=== PATIENT | female | born 1980 | race African-American/Black ===

== ENCOUNTER 2020-05-23 12:12 | Inpatient (IN) | payer OTHER ==
[2020-05-23 13:26] VITALS: BMI 36.0
[2020-05-23] MEDS ORDERED: LIGASURE IMPACT TP ONE (14:22)
[2020-05-23] MEDS ORDERED: morphine SULFATE/PF 0.5 MG/ML (2cc Syringe - QUVA) ONE (14:31)
--- NOTE | 2020-05-23 14:45 | HP ---
Past Medical History - Primary Care Physician PCP:: Buddy Lutz - Admission Chief Complaint: 40yo P2 with at EGA 39w1d admitted for repeat C/S and pt also requested bilateral salpingectomy for sterilization. 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: Alzheimer's, CVA, Dementia, Migraine, Multiple Sclerosis, Peripheral Neuropathy, Parkinson's, Seizure, Syncope, TIA, Vertigo, Other Cardiovascular: No: AFIB, Aneurysm, Aortic Insufficiency, Aortic Stenosis, CAD, CHF, Deep Vein Thrombosis, HTN, Hyperlipdemia, [place], Mitral Insufficiency, Mitral Stenosis, Murmur, Pulmonary Hypertension, Other Pulmonary: No: Asthma, Bronchitis, Cancer, COPD, O2 Dependent, Pneumonia, Previously Intubated, Pulmonary Embolus, Pulmonary Fibrosis, Sleep Apnea, Other Gastrointestinal: No: Ascites, Cancer, Constipation, Crohn's Disease, Diverticulitis, Diverticulosis, Esophageal Varices, Gastritis, GERD, GI Bleed, Hemorrhoids, Hiatal Hernia, Inflamatory Bowel Disease, Irritable Bowel Disease, Pancreatitis, Peptic Ulcer Disease, Ulcerative Colitis, Other Hepatobiliary: No: Cirrhosis, Cholelithiasis, Cholecystitis, Choledo cholithiasis, Hepatitis A, Hepatitis B, Hepatitis C, Other Renal/: No: Renal Failure, Renal Inusuff, BPH, Cancer, Hematuria, Hemodialysis, Neurogenic Bladder, Renal Calculi, UTI, Other ...: 3 ...Para: 2 ...Term: 2 ...Living Children: 2 ...LMP: 08/31/19 ... Weeks Gestation by Dates: 39.1 ...EDC by Dates: 06/06/20 ...EDC by Sono: 05/29/20 Heme/Onc: No: Anemia, B12 Deficiency, Bleeding Disorder, Cancer, Current Chemotherapy, Current Radiation Therapy, Hemochromatosis, Hypercoaguable State, Myeloproliferative Synd, Sickle Cell Disease, Sickle Cell Trait, Thrombocytopenia, Other Infectious Disease: Yes: MRSA Psych: No: Addictions, Anxiety, Bipolar, Depression, Panic, Psychosis, Schizophr enia, Other Musculoskeletal: No: Bursitis, Chronic low back pain, Hemiparesis, Hemiplegia, Osteoarthritis, Paraplegia, Other Rheumatology: No: Fibromyalgia, Gout, Lupus, Rheumatoid Arthritis, Sarcoidosis, Vasculitis, Other ENT: No: Allergic Rhinitis, Sinusitis, Other Endocrine: No: Camp's Disease, Inderjit's Disease, Diabetes Insipidus, Diabetes Mellitus, Hyperparathyroidism, Hyperthyroidism, Hypothyroidism, Osteopenia, SIADH, Other Dermatology: No: Basal Cell, Cellulitis, Eczema, Melanoma, Psoriasis, Squamous Cell, Other - Past Surgical History Past Surgical History: Yes: (x 2) Hx Myomectomy: No Hx Transabdominal Cerclage: No - Smoking History Smoking history: Never smoked - Alcohol/Substance Use Hx Alcohol Use: No History of Substance Use: reports: None - Social History Usual Living Arrangement: Yes: With Parent, With Child Do you think of yourself as: Straight/Heterosexual ADL: Independent History of Recent Travel: No Home Medications - Allergies Allergies/Adverse Reactions: Allergies Allergy/AdvReac Type Severity Reaction Status Date / Time Sulfa (Sulfonamide Allergy Severe Difficulty Verified 05/23/20 13:35 Antibiotics) Breathing - Home Medications Home Medications: Ambulatory Orders Caplet 1 tablet PO DAILY 05/22/20 Family Medical History Family Hx Cardiac Disorders: Brother Family Hx Diabetes: Mother Family Hx Respiratory Disorders: Father Review of Systems - Review of Systems Constitutional: reports: No Symptoms Eyes: reports: No Symptoms HENT: reports: No Symptoms Neck: reports: No Symptoms Cardiovascular: reports: No Symptoms Respiratory: reports: No Symptoms Gastrointestinal: reports: No Symptoms Genitourinary: reports: No Symptoms Breasts: reports: No Symptoms Reported Musculoskeletal: reports: No Symptoms Integumentary: reports: No Symptoms Neurological: reports: No Symptoms Endocrine: reports: No Symptoms Hematology/Lymphatic: reports: No Symptoms Psychiatric: reports: No Symptoms Pain Intensity: 0 Physical Exam - Maternity Vital Signs: Vital Signs Temperature 98.2 F 05/23/20 13:17 Pulse Rate 82 05/23/20 13:17 Respiratory Rate 20 05/23/20 13:17 Blood Pressure 127/72 05/23/20 13:17 O2 Sat by Pulse Oximetry (%) Constitutional: Yes: Well Nourished, No Distress, Calm Eyes: Yes: WNL, Conjunctiva Clear, EOM Intact HENT: Yes: WNL, Atraumatic, Normocephalic Neck: Yes: WNL, Supple, Trachea Midline Cardiovascular: Yes: WNL, Regular Rate and Rhythm Lungs: Clear to auscultation, Normal air movement Breast(s): Yes: WNL - Abdominal Exam/OB Fundal Height: 39 Number of Fetuses: Single Presentation: Vertex Contractions: Yes Regularity: Irregular Intensity: Unaware Monitor Mode: External Heart Rate (range): 120 Heart Rate Location: Midline Category: I Accelerations: Uniform Decelerations: None - Vaginal Exam/OB Vaginal Bleeding: No Speculum Exam: No Presentation: Vertex/Position - Physical Exam Musculoskeletal: Yes: WNL Extremities: Yes: WNL Edema: No Integumentary: Yes: WNL Deep Tendon Reflex Grade: Normal +2 ...Motor Strength: WNL Psychiatric: Yes: WNL, Alert, Oriented Hemorrhage Risk Assessment - Risk Factors Medium Risk Factors: Yes: Prior , uterine surgery,or multiple laparotomies High Risk Factors: Yes: None Risk Score: 1 Risk Level: Medium Risk Imaging - Results Ultrasound: Report Reviewed Assessment/Plan 40yo P2 with at EGA 39w1d admitted for repeat C/S and pt also requested bilateral salpingectomy for sterilization. We discussed the risks and benefits of C/S and salingectomy at length, including but not limited to scarring, pain, bleeding, infection, injury to underlying organs and structures, need for additional surgery to repair/treat any problems or complications, complications/injuries, etc. The pt verbalized her understanding and requested to proceed with surgery. The pt is aware that all surgeries have risks and no guarantees can be provided.
[2020-05-23] MEDS ORDERED: MIDAZOLAM HCL 2 MG/2 ML SINGLE DOSE VIAL ONE (15:48)
[2020-05-23] MEDS ORDERED: oxyCODONE HCL 5 MG TABLET PO PRN (16:39)
[2020-05-23] MEDS ORDERED: SENNOSIDES/DOCUSATE COMBO (SENNA PLUS) TABLET (UD) PO PRN (16:39)
[2020-05-23] MEDS ORDERED: BENZOCAINE 28 GM HEMORRHOIDAL OINTMENT TP PRN (16:39)
[2020-05-23] MEDS ORDERED: IBUPROFEN 800 MG/8 ML IJ IVPB PRN (16:39)
[2020-05-23] MEDS ORDERED: BENZOCAINE 20% 57 GM BOTTLE TP PRN (16:39)
[2020-05-23] MEDS ORDERED: METHYLERGONOVINE MALEATE 0.2 MG/1 ML AMP IM PRN (16:39)
[2020-05-23] MEDS ORDERED: WITCH HAZEL 50% (TUCKS) 40 PAD/JAR PAD TP PRN (16:39)
[2020-05-23] MEDS ORDERED: OXYTOCIN 20 UNITS in 0.9% NS 20 UNIT/1,000 ML INFUS.BAG IV SCH (16:45)
[2020-05-23] MEDS ORDERED: ELECTROLYTE-148 SOLN 1,000 ML IV SCH (16:45)
--- NOTE | 2020-05-23 16:45 | OP ---
Operative Note - Note: Operative Date: 05/23/20 Pre-Operative Diagnosis: at EGA 39w1d. Prior C/S x 2. AMA. Sterilization Operation: 1. Repeat LT C/S. 2. Bilateral salpingectomy Findings: Live baby girl in vtx presentation. No meconium in amniotic fluid. Normal uterus/ovaries/tubes Post-Operative Diagnosis: Same as Pre-op Surgeon: Buddy Lutz Exercise Physiologist Certified: Enma Sands Anesthesiologist/SOCIAL SCIENCES PROFESSOR: Luke Ricci Anesthesia: Spinal Specimens Removed: Placenta, bilateral Fallopian tubes Estimated Blood Loss (mls): 700 Drains & Tubes with Location: Rao cath Drains, Volume Out (mls): 600 Blood Volume Replaced (mls): 0 Fluid Volume Replaced (mls): 1,400 Operative Report Dictated: Yes
[2020-05-23] MEDS ORDERED: ONDANSETRON 4 MG/2 ML VIAL IVPUSH PRN (16:52)
[2020-05-23] MEDS ORDERED: morphine SULFATE/PF 0.5 MG/ML (2cc Syringe - QUVA) EP ONE (16:52)
--- NOTE | 2020-05-23 16:56 | PN ---
Delivery - Delivery Section: Repeat, Low Flap Transverse Type of Anesthesia: Spinal EBL (cc): 700 Delivery, Single - Stages of Labor Date of Delivery: 05/23/20 Time of Delivery: 15:19 Time Placenta Delivered: 15:20 Placenta: Yes: Expressed, Manual Removal - Condition of Pediatrics Teacher/Oracle Programmer Analyst Present: Yes Name: Ratna Lucas Gender: Female Position: Right, OT Total Hours ROM (Hrs/Mins): 1M - 1 Minute Total Score: 9 5 Minutes Total Score: 9 - Feeding Plan Initial Plan: Elected not to breastfeed exclusively throughout hospitalization Benefits of Exclusively reinforced: Yes
[2020-05-23 17:18] LABS: CORD PCO2 56.6 mmHg (30-78); CORD pH 7.246 (7.14-7.44)
[2020-05-23 17:21] LABS: CORD BASE EXCESS -4.6 mmol/L (0-2); CORD HCO3 22.2 mmHg (20-29); CORD PCO2 47.3 mmHg (30-78); CORD pH 7.29 (7.14-7.44)
[2020-05-23] MEDS ORDERED: OXYTOCIN 20 UNITS in 0.9% NS 20 UNIT/1,000 ML INFUS.BAG IV ONE (17:44)
[2020-05-24 08:06] LABS: BASO % 0.6 % (0-2.0); EOS % 1.7 % (0-4.5); HEMATOCRIT 37.9 % (32.4-45.2); HEMOGLOBIN 12.1 GM/dL (10.7-15.3); LYMPH % 12.3 % (8-40); MCH 27.7 pg (25.7-33.7); MCHC 31.8 g/dl (32.0-36.0); MEAN CELL VOLUME 87.3 fl (80-96); MONO % 8.8 % (3.8-10.2); NEUT % 76.6 % (42.8-82.8); PLATELET COUNT 249 K/MM3 (134-434); RBC 4.34 M/mm3 (3.60-5.2); RDW 13.8 % (11.6-15.6)
--- NOTE | 2020-05-24 08:21 | PN ---
Post Progress Note - Subjective Subjective: No acute compalints Adelina clears No nausea /vomiting Rao clear fluid No fevers / chills No chest pain/ shortness of breath Post Day: 1 Type of Delivery: Repeat C/S Vital Signs: Vital Signs Temperature 98.4 F 05/24/20 08:00 Pulse Rate 102 H 05/24/20 08:00 Respiratory Rate 18 05/24/20 08:00 Blood Pressure 121/82 05/24/20 08:00 O2 Sat by Pulse Oximetry (%) 97 05/24/20 04:00 Breast Exam: Yes: Soft Uterus: Yes: Fundus Firm, Fundus below umbilicus Incision: Yes: Dressing dry and intact Abdomen/GI: Yes: Abdomen soft, Abdominal Distention (mild soft), Passing flatus, Tolerating PO. No: Tender Lochia: Yes: Rubra Lochia, amount: Moderate Extremities: Yes: Calves non-tender, Edema (trace) Activity: Ambulating - Labs Labs: CBC WBC 15.0 K/mm3 (4.0-10.0) H 05/24/20 07:34 RBC 4.34 M/mm3 (3.60-5.2) 05/24/20 07:34 Hgb 12.1 GM/dL (10.7-15.3) 05/24/20 07:34 Hct 37.9 % (32.4-45.2) 05/24/20 07:34 MCV 87.3 fl (80-96) 05/24/20 07:34 MCH 27.7 pg (25.7-33.7) 05/24/20 07:34 MCHC 31.8 g/dl (32.0-36.0) L 05/24/20 07:34 RDW 13.8 % (11.6-15.6) 05/24/20 07:34 Plt Count 249 K/MM3 (134-434) 05/24/20 07:34 MPV 9.0 fl (7.5-11.1) 05/24/20 07:34 Absolute Neuts (auto) 11.5 K/mm3 (1.5-8.0) H 05/24/20 07:34 Neutrophils % 76.6 % (42.8-82.8) 05/24/20 07:34 Lymphocytes % 12.3 % (8-40) D 10/22/20 07:34 Monocytes % 8.8 % (3.8-10.2) 05/24/20 07:34 Eosinophils % 1.7 % (0-4.5) 05/24/20 07:34 Basophils % 0.6 % (0-2.0) 05/24/20 07:34 Nucleated RBC % 0 % (0-0) 05/24/20 07:34 Assessment/Plan 40 yo POD # 1 s/p repeat CD + bilateral salpingectomy, afebrile, vital signs stable, doing well 1. continue routine postop care 2. AM CBC without signs of anemia 3. rh positive, no rhogam indicated 4. will advance diet as tolerated 5. will encourage ambulation 6. anticipate DC home POD # 3
[2020-05-24] MEDS ORDERED: PRENATAL PO SCH (10:00)
[2020-05-24] MEDS: PRENATAL VITAMINS W/ FOLIC ACID TABLET (FP) PO SCH (11:21)
[2020-05-24] MEDS: ENOXAPARIN NA (PORCINE) 40 MG/0.4 ML DISP.SYRIN SQ SCH (11:23)
--- NOTE | 2020-05-24 12:32 | PN ---
Progress Note (short form) - Note Progress Note: Anesthesia POD#1 S/P under Spinal A with DM VSS, no N/V, pain is bearable, legs fully recovered, Kanchan Martinez MD.
[2020-05-24] MEDS ORDERED: BISACODYL 10 MG SUPP.RECT RC PRN (16:39)
[2020-05-24] MEDS: IBUPROFEN 600 MG TABLET (FP) PO PRN (18:21)
[2020-05-24] MEDS: ACETAMINOPHEN 325 MG TABLET (FP) PO PRN (18:22)
--- NOTE | 2020-05-25 07:49 | PN ---
Progress Note (short form) - Note Progress Note: pod 2 s/p c/s , passing gas. ambulating MRSA positive ab asymptomatic CBC, BMP 05/24/20 07:34 Last Vital Signs Temp Pulse Resp BP Pulse Ox 98.2 F 100 H 20 129/76 98 05/24/20 21:00 05/24/20 21:00 05/24/20 21:00 05/24/20 21:00 05/24/20 17:00 abdomen soft, no distension, no cva incision dry, clean no calf tenderness plan ambulate ID consult revaluate cbc in am
[2020-05-25] MEDS: SIMETHICONE 80 MG TAB.CHEW (FP) PO PRN (09:21)
[2020-05-25] MEDS: IBUPROFEN 600 MG TABLET (FP) PO PRN (09:21)
[2020-05-25] MEDS: ACETAMINOPHEN 325 MG TABLET (FP) PO PRN (09:22)
[2020-05-25] MEDS: ENOXAPARIN NA (PORCINE) 40 MG/0.4 ML DISP.SYRIN SQ SCH (09:22)
[2020-05-25] MEDS: PRENATAL VITAMINS W/ FOLIC ACID TABLET (FP) PO SCH (09:23)
--- NOTE | 2020-05-25 11:34 | CON.ID ---
Consult Consult Specialty:: infectious diseases Referred by:: Reason for Consultation:: wound infection with mrsa - History of Present Illness Chief Complaint: wound infection History of Present Illness: 40yo P2 with at EGA 39w1d admitted for repeat C/S and pt had a healthy baby post op patient was found to have drainage from the wound according to her umbilicus and was cultured and is growing mrsa also her nostrils are growing mrsa patient mentions that she had a kid last year also and that time also she had mrsa infection of the skin and was treated with clinda patient denies any fever or any other issues - History Source History Provided By: Patient Limitations to Obtaining History: No Limitations - Past Medical History THERAPIST RADIATION: No: Alzheimer's, CVA, Dementia, Migraine, Multiple Sclerosis, Peripheral Neuropathy, Parkinson's, Seizure, Syncope, TIA, Vertigo, Other Cardio/Vascular: No: AFIB, Aneurysm, Aortic Insufficiency, Aortic Stenosis, CAD, CHF, Deep Vein Thrombosis, HTN, Hyperlipdemia, [place], Mitral Insufficiency, Mitral Stenosis, Murmur, Pulmonary Hypertension, Other Pulmonary: No: Asthma, Bronchitis, Cancer, COPD, O2 Dependent, Pneumonia, Previously Intubated, Pulmonary Embolus, Pulmonary Fibrosis, Sleep Apnea, Other Gastrointestinal: No: Ascites, Cancer, Constipation, Crohn's Disease, Diverticulitis, Diverticulosis, Esophageal Varices, Gastritis, GERD, GI Bleed, Hemorrhoids, Hiatal Hernia, Inflamatory Bowel Disease, Irritable Bowel Disease, Pancreatitis, Peptic Ulcer Disease, Ulcerative Colitis, Other Hepatobiliary: No: Cirrhosis, Cholelithiasis, Cholecystitis, Choledocholithiasi s, Hepatitis A, Hepatitis B, Hepatitis C, Other Renal/: No: Renal Failure, Renal Inusuff, BPH, Cancer, Hematuria, Hemodialysis, Neurogenic Bladder, Renal Calculi, UTI, Other Infectious Disease: Yes: MRSA Psych: No: Addictions, Anxiety, Bipolar, Depression, Panic, Psychosis, Schizophrenia, Other Musculoskeletal: No: Bursitis, Chronic low back pain, Hemiparesis, Hemiplegia, Osteoarthritis, Paraplegia, Other Rheumatology: No: Fibromyalgia, Gout, Lupus, Rheumatoid Arthritis, Sarcoidosis, Vasculitis, Other ENT: No: Allergic Rhinitis, Sinusitis, Other Endocrine: No: Anderson's Disease, Republic's Disease, Diabetes Insipidus, Diabetes Mellitus, Hyperparathyroidism, Hyperthyroidism, Hypothyroidism, Osteopenia, SIADH, Other Dermatology: No: Basal Cell, Cellulitis, Eczema, Melanoma, Psoriasis, Squamous Cell, Other - Past Surgical History Past Surgical History: Yes: (x 2) - Alcohol/Substance Use Hx Alcohol Use: No History of Substance Use: reports: None - Smoking History Smoking history: Never smoked - Social History ADL: Independent History of Recent Travel: No Home Medications - Allergies Allergies/Adverse Reactions: Allergies Allergy/AdvReac Type Severity Reaction Status Date / Time Sulfa (Sulfonamide Allergy Severe Difficulty Verified 05/23/20 13:35 Antibiotics) Breathing - Home Medications Home Medications: Ambulatory Orders Caplet 1 tablet PO DAILY 05/22/20 Family Medical History Family Hx Cardiac Disorders: Brother Family Hx Diabetes: Mother Family Hx Respiratory Disorders: Father Review of Systems - Review of Systems Constitutional: reports: No Symptoms Eyes: reports: No Symptoms HENT: reports: No Symptoms Neck: reports: No Symptoms Cardiovascular: reports: No Symptoms Respiratory: reports: No Symptoms Gastrointestinal: reports: No Symptoms Genitourinary: reports: No Symptoms Breasts: reports: No Symptoms Reported Musculoskeletal: reports: No Symptoms Integumentary: reports: No Symptoms Neurological: reports: No Symptoms Endocrine: reports: No Symptoms Hematology/Lymphatic: reports: No Symptoms Psychiatric: reports: No Symptoms Physical Exam Vital Signs: Vital Signs Temperature 98.4 F 05/25/20 09:23 Pulse Rate 98 H 05/25/20 09:23 Respiratory Rate 20 05/25/20 09:23 Blood Pressure 131/85 05/25/20 09:23 O2 Sat by Pulse Oximetry (%) 100 05/25/20 09:23 Constitutional: Yes: No Distress, Calm Cardiovascular: Yes: Regular Rate and Rhythm Respiratory: Yes: Regular, CTA Bilaterally Gastrointestinal: Yes: Normal Bowel Sounds, Soft Musculoskeletal: Yes: WNL Extremities: Yes: WNL Wound/Incision: Yes: Clean/Dry, Open to air, Other (no drain noted) Neurological: Yes: Alert, Oriented Psychiatric: Yes: Alert, Oriented Labs: CBC, BMP 05/24/20 07:34 Assessment/Plan this relatively healthy patient who has skin infection with mrsa and i think she is a carrier on the skin i am going to start her on clinda also on discharge patient should buy the clorhexidine soap and take shower for 2 weeks also to wear a protective gown when she is with her baby for at least 2 weeks will wait to see sensitivities
[2020-05-25] MEDS: CLINDAMYCIN HCL 150 MG CAPSULE (FP) PO SCH ×2 (13:38→17:49)
[2020-05-26] MEDS: IBUPROFEN 600 MG TABLET (FP) PO PRN ×3 (00:29→13:53)
[2020-05-26] MEDS: ACETAMINOPHEN 325 MG TABLET (FP) PO PRN ×3 (00:29→13:54)
[2020-05-26] MEDS: CLINDAMYCIN HCL 150 MG CAPSULE (FP) PO SCH ×4 (00:30→18:23)
[2020-05-26] MEDS: SIMETHICONE 80 MG TAB.CHEW (FP) PO PRN ×3 (00:30→13:55)
[2020-05-26 07:53] LABS: BASO % 0.6 % (0-2.0); EOS % 5.1 % (0-4.5); HEMATOCRIT 32.9 % (32.4-45.2); HEMOGLOBIN 10.7 GM/dL (10.7-15.3); LYMPH % 28.2 % (8-40); MCH 28.5 pg (25.7-33.7); MCHC 32.6 g/dl (32.0-36.0); MEAN CELL VOLUME 87.3 fl (80-96); MEAN PLT VOLUME 8.8 fl (7.5-11.1); MONO % 10.4 % (3.8-10.2); NEUT % 55.7 % (42.8-82.8); PLATELET COUNT 286 K/MM3 (134-434); RBC 3.76 M/mm3 (3.60-5.2); RDW 13.7 % (11.6-15.6); WHITE BLOOD COUNT 10.4 K/mm3 (4.0-10.0)
--- NOTE | 2020-05-26 08:33 | PN ---
Post Progress Note - Subjective Subjective: Patient without acute complaints. Reports tolerating oral intake without nausea or vomiting. Ambulating without dizziness. Denies fevers or chills. Pain well controlled with oral pain medication. without difficulty. Passing flatus. Post Day: 3 Type of Delivery: Repeat C/S Vital Signs: Vital Signs Temperature 98.7 F 05/25/20 22:00 Pulse Rate 93 H 05/25/20 22:00 Respiratory Rate 18 05/25/20 22:00 Blood Pressure 139/88 05/25/20 22:00 O2 Sat by Pulse Oximetry (%) 100 05/25/20 09:23 Breast Exam: Yes: Soft Uterus: Yes: Fundus Firm Incision: Yes: Sutures intact Abdomen/GI: Yes: Abdomen soft Lochia: Yes: Rubra Lochia, amount: Small Extremities: Yes: Calves non-tender Perineum: Yes: Intact Activity: Ambulating - Labs Labs: CBC WBC 10.4 K/mm3 (4.0-10.0) H 05/26/20 06:55 RBC 3.76 M/mm3 (3.60-5.2) 05/26/20 06:55 Hgb 10.7 GM/dL (10.7-15.3) 05/26/20 06:55 Hct 32.9 % (32.4-45.2) 05/26/20 06:55 MCV 87.3 fl (80-96) 05/26/20 06:55 MCH 28.5 pg (25.7-33.7) 05/26/20 06:55 MCHC 32.6 g/dl (32.0-36.0) 05/26/20 06:55 RDW 13.7 % (11.6-15.6) 05/26/20 06:55 Plt Count 286 K/MM3 (134-434) 05/26/20 06:55 MPV 8.8 fl (7.5-11.1) 05/26/20 06:55 Absolute Neuts (auto) 5.8 K/mm3 (1.5-8.0) 05/26/20 06:55 Neutrophils % 55.7 % (42.8-82.8) D 05/26/20 06:55 Lymphocytes % 28.2 % (8-40) D 05/26/20 06:55 Monocytes % 10.4 % (3.8-10.2) H 05/26/20 06:55 Eosinophils % 5.1 % (0-4.5) H D 05/26/20 06:55 Basophils % 0.6 % (0-2.0) 05/26/20 06:55 Nucleated RBC % 0 % (0-0) 05/26/20 06:55 Assessment/Plan 40yo P 3 s/p repeat c/section dx with MRSA VSS, Afebrile, Doing well WBC dropped on Clindamycin seen by ID discussed with Dr. Garcia will d/c home once final recommendations given by ID NPV x 6wks RTO 1 wk
[2020-05-26] MEDS: ENOXAPARIN NA (PORCINE) 40 MG/0.4 ML DISP.SYRIN SQ SCH (10:06)
[2020-05-26] MEDS: PRENATAL VITAMINS W/ FOLIC ACID TABLET (FP) PO SCH (10:08)
[2020-05-26 13:34] VITALS: BP 131/85; PULSE 95; TEMP 98.1
--- NOTE | 2020-05-28 15:59 | PATH ---
Surgical Pathology Report Patient Name: HEAVENLY FERRARI [facility]. Rec. #: [id number] /Age/Gender: 1980 (Age: 40) / F Account: [id number] Location: [facility] OBS/PAYROLL MASTER Taken: 05/23/2020 Received: 05/24/2020 Reported: 05/28/2020 Physicians: Buddy Lutz M.D. Specimen(s) Received A: PLACENTA B: LEFT FALLOPIAN TUBE C: RIGHT FALLOPIAN TUBE Clinical History x2 Final Diagnosis A. PLACENTA, SECTION: 470 G THIRD TRIMESTER PLACENTA WITH TRIVASCULAR UMBILICAL CORD AND UNREMARKABLE PLACENTAL MEMBRANES. B. FALLOPIAN TUBE, LEFT, SALPINGECTOMY: UNREMARKABLE FALLOPIAN TUBE (INCLUDING FIMBRIATED END AND FULL LUMINAL PORTION). C. FALLOPIAN TUBE, RIGHT, SALPINGECTOMY: UNREMARKABLE FALLOPIAN TUBE (INCLUDING FIMBRIATED END AND FULL LUMINAL PORTION). Electronically Signed Kamilla Vieyra M.D. Gross Description A. The specimen is received fresh labeled placenta and is a 470 gram, 18.5 x 16.0 x 2.3 cm. placenta with attached membranes and umbilical cord. The attached membranes are schuler, translucent with focal opacities and insert marginally. The umbilical cord measures 10.5 cm. in length and averages 1.4 cm. in diameter. The cord inserts eccentrically, 4 cm. to the nearest margin. No true knots or strictures are identified. Cut surface of the umbilical cord reveals 3 vessels. The surface is myles-blue with minimal fibrin deposition and appropriate caliber vessels. The maternal surface is red-brown with focal defects. Sectioning reveals red-brown, spongy parenchyma. No lesions are identified. Caustic Purification Operator sections are submitted in three cassettes as follows: 1- membrane rolls and umbilical cord; 2-3- full thickness sections of placenta. B. Received in formalin labeled "left fallopian tube," is a 5 cm in length fimbriated fallopian tube. The outer surface is schuler myles and smooth. Sectioning reveals an unremarkable lumen. Caustic Purification Operator sections are submitted in 2 cassettes as follows: 1-fimbria; 2-cross sections of fallopian tube. C. Received in formalin labeled "right fallopian tube," is a 5 cm in length fimbriated fallopian tube. The outer surface is winters purple and smooth. Sectioning reveals an unremarkable lumen. Caustic Purification Operator sections are submitted in 2 cassettes as follows: 1-fimbria; 2-cross sections of fallopian tube. 05/25/2020 [facility]05/25/2020
--- NOTE | 2020-05-29 14:05 | OP ---
DATE OF OPERATION: 05/23/2020 PREOPERATIVE DIAGNOSIS: at estimated gestational age of 39 weeks and 1 day. Prior history of 2 sections. Advanced maternal age. Sterilization. POSTOPERATIVE DIAGNOSIS: at estimated gestational age of 39 weeks and 1 day, delivered. Prior history of 2 sections. Advanced maternal age. Sterilization. PROCEDURE: Repeat low transverse section. Bilateral salpingectomy. SURGEON: Buddy Lutz MD THREAD INSPECTOR: Enma Sands MD ANESTHESIOLOGIST: Luke Ricci MD ANESTHESIA: Spinal. COMPLICATIONS: None. ESTIMATED BLOOD LOSS: 700 mL. INTRAVENOUS FLUIDS: 1400 mL. URINE OUTPUT: Clear urine, 600 mL, at the end of the procedure. PATHOLOGY: Placenta and bilateral fallopian tubes. FINDINGS: Live baby girl in vertex presentation. No meconium in amniotic fluids. Normal uterus, ovaries, and fallopian tubes. PROCEDURE DESCRIPTION: The patient was met preoperatively. Risks, benefits, and alternatives of surgery were discussed. The consent form was reviewed and explained. The patient verbalized her understanding and requested to proceed with the surgery. She was brought to the OR with the IV running. The patient was placed on a surgical table in a sitting position. The spinal anesthesia was achieved without difficulty. The patient was then placed in a supine position with a leftward tilt. She was prepped and draped in the usual sterile fashion. A Rao catheter was inserted in the bladder and left to drain to gravity. The timeout was conducted as per standard protocol. The surgeons then proceeded with the operation. A Pfannenstiel skin incision was made approximately 2 cm above the pubic symphysis along the prior scar. The incision was taken down to the level of fascia. The fascia was incised in the midline. The incision was extended bilaterally using Kitchen scissors. The fascia was then dissected away from the rectus muscles superiorly and inferiorly using sharp dissection. The rectus muscles were in the midline. There was scarring noted between the omentum and the anterior abdominal wall. The rectus muscles and peritoneum were not separable. The peritoneal cavity was entered sharply. The omentum was carefully dissected away from the anterior abdominal wall and retracted away from the operative field. The uterus and lower uterine segment appeared to be within normal limits; however, the bladder was densely adherent to the lower uterine segment. The bladder peritoneum was incised, and the bladder was carefully dissected away from the lower uterine segment using sharp dissection. The bladder was reflected downwards using a Siddharth retractor. The lower uterine segment was incised transversely using a knife. The incision was extended bilaterally using bandage scissors. The baby was delivered from vertex presentation without complications. The baby's nose and mouth were suctioned upon delivery. The umbilical cord was clamped and cut. The baby was handed to the awaiting pepper picker. The placenta was then delivered by manual extraction without complications. The uterus was cleared of clots and debris using laparotomy laps. The uterine incision was repaired using a 0 Biosyn suture with a running locking stitch. Good hemostasis was noted. The uterine incision was then imbricated using a secondary layer of closure with a 0 Biosyn suture. The left fallopian tube was then identified and traced to the fimbriated end. A LigaSure device was then used to completely excise the left fallopian tube. The right fallopian tube was then identified and also traced to the fimbriated end. The right fallopian tube was also excised using a LigaSure device with good hemostasis. Both fallopian tubes were submitted to pathology. The operative site was then irrigated using copious amounts of normal saline. Once the saline was aspirated, good hemostasis was confirmed. The peritoneum was approximated in the midline using 2-0 chromic suture. The rectus muscles were also approximated in the midline using 2-0 chromic suture. The rectus muscles were also approximated in the midline using several interrupted 2-0 chromic sutures. The fascia was closed with a 0 Vicryl suture with good hemostasis and approximation. The adipose subcutaneous tissues were approximated to eliminate space and to reduce the tension on the skin incision. The skin was then closed using a 4-0 Vicryl suture using a subcutaneous stitch. Sponge, lap, instrument counts were correct. The patient tolerated the procedure well, and she was transferred to recovery room in stable condition. Marie [id number]
== END 2020-05-26 18:30 | disposition home or self-care (01) | DRG 785 ==
LOC: JLDR 12:12 → J3W 20:06
PROVIDERS: ADMIT Obstetrics & Gynecology; ATTEND Obstetrics & Gynecology
PROC: 10D00Z1 Extraction of Products of Conception, Low, Open Approach (ICD-10-PCS; principal; 2020-05-23)
PROC: 0UB70ZZ Excision of Bilateral Fallopian Tubes, Open Approach (ICD-10-PCS; 2020-05-23)
DX: O34.219 Maternal care for unspecified type scar from previous cesarean delivery (principal); O86.01 Infection of obstetric surgical wound, superficial incisional site; B95.62 Methicillin resistant Staphylococcus aureus infection as the cause of diseases classified elsewhere; Z30.2 Encounter for sterilization; Z22.322 Carrier or suspected carrier of Methicillin resistant Staphylococcus aureus; Z3A.39 39 weeks gestation of pregnancy; Z37.0 Single live birth
CPT/HCPCS: 36415; 36600; 82803; 85025; 87077; 87081; 88302-TC; 88307-TC

== ENCOUNTER 2023-06-08 04:26 | Day surgery (SDC) | payer OTHER ==
[2023-06-04 10:45] VITALS: BMI 30.2
[2023-06-08] MEDS ORDERED: LIDOCAINE HCL/PF 2% SDV 5ML VIAL ONE (13:59)
[2023-06-08] MEDS ORDERED: FENTANYL CITRATE/PF 50 MCG/ML VIAL ONE (13:59)
[2023-06-08] MEDS ORDERED: PROPOFOL 20 ML ONE (14:00)
[2023-06-08] MEDS ORDERED: MIDAZOLAM HCL 2 MG/2 ML SINGLE DOSE VIAL ONE (14:00)
[2023-06-08] MEDS ORDERED: DEXAMETHASONE SOD PHOSPHATE 4 MG/1 ML VIAL ONE (14:16)
[2023-06-08] MEDS ORDERED: ceFAZolin SODIUM 1 GM VIAL ONE (14:21)
[2023-06-08] MEDS ORDERED: ceFAZolin SODIUM 1 GM VIAL IVPB ONE (14:28)
[2023-06-08] MEDS ORDERED: ONDANSETRON 4 MG/2 ML VIAL ONE (14:39)
[2023-06-08] MEDS ORDERED: KETOROLAC TROMETHAMINE 30 MG/1 ML VIAL ONE (14:39)
[2023-06-08] MEDS ORDERED: ONDANSETRON 4 MG/2 ML VIAL IVPUSH PRN (14:58)
[2023-06-08] MEDS ORDERED: PROMETHAZINE HCL 25 MG/1 ML VIAL IVPB PRN (14:58)
[2023-06-08] MEDS ORDERED: oxyCODONE HCL 5 MG TABLET PO PRN ×2 (14:58)
[2023-06-08] MEDS ORDERED: ACETAMINOPHEN 1000 MG/100 ML BAG IVPB ONE (14:58)
[2023-06-08] MEDS ORDERED: LACTATED RINGERS SOLUTION 1,000 ML IV SCH (15:00)
[2023-06-08 17:58] VITALS: BP 117/77; PULSE 90; RESP 18; TEMP 98.4
== END 2023-06-08 18:00 | disposition home or self-care (01) ==
LOC: JASU-SURG 04:26
PROVIDERS: ATTEND Obstetrics & Gynecology
PROC: 0UDB8ZX Extraction of Endometrium, Via Natural or Artificial Opening Endoscopic, Diagnostic (ICD-10-PCS; principal; 2023-06-08 13:00)
DX: N92.1 Excessive and frequent menstruation with irregular cycle (principal)
CPT/HCPCS: 81025; 88305-TC; 94760